=== PATIENT | female | born 1990 | race Caucasian/White ===

== ENCOUNTER → 2018-06-27 | Outpatient (CLI) | payer OTHER ==
[2018-06-27 16:55] LABS: HCT 39.8 % (34.0-46.0); HGB 13.3 gm/dL (11.4-16.0); MCH 29.7 pg (25.0-35.0); MCHC 33.4 g/dL (31.0-37.0); Mean Platelet Volume 7.5; Platelet Count 261 k/uL (150-450); RBC 4.48 m/uL (3.80-5.40); RDW 13.7 % (11.5-15.5); WBC 10.6 k/uL (3.8-10.6)
[2018-06-27 17:04] LABS: Glucose 82 mg/dL (74-99)
[2018-06-28 05:06] LABS: Toxoplasma Antibody (IgG) <3.0 IU/mL (<7.2); Toxoplasma Antibody (IgM) <3.0 AU/mL (<8.0)
[2018-06-28 05:19] LABS: HIV 1 AB Non-Reactive (Non-Reactive); HIV AB P24 Non-Reactive (Non-Reactive); HIV P24 AG Non-Reactive (Non-Reactive)
--- NOTE | 2018-06-28 09:20 | US ---
EXAMINATION TYPE: Transabdominal DATE OF EXAM: 06/27/2018 3:51 PM COMPARISON: NONE CLINICAL HISTORY: Z36 confirm dates. Confirm dates, 7, para 4, miscarriage 2. EXAM PERFORMED: Transabdominal (TA) EXAM MEASUREMENTS: GESTATIONAL AGE / DATING Physician Established: (8 weeks/3 days) EDC: 02/03/2019 Dates by LMP: Unknown Dates by First Scan: This is 1st scan Dates by Current Scan for: ( 9 weeks/0 days) EDC: 01/30/2019 MATERNAL ANATOMY Uterus: 9.5 x 6.6 x 7.8cm, anteverted Right Ovary: 2.5 x 1.6 x 1.6cm Left Ovary: 2.2 x 1.2 x 1.3cm Post CDS / Adnexa: wnl Presence of free fluid: no Presence of corpus luteal cyst: not seen Presence of subchorionic bleed: 0.9 x 1.5 x 0.7cm complex area seen to the right of gestational sac, 2.0 x 0.7 x 1.9cm complex area seen to the left of gestational sac. GESTATION / SURVEY CRL: 2.3cm (9 weeks/0 days) Yolk Sac (normal less than 6mm): 4.2mm Heart Rate: 179 bpm Rhythm: Normal IUP: Viable IUP Date of LMP: Unknown Beta HcG (if available): Not available at time of exam. Single IUP measuring 9 weeks 0 days with a heart rate of 179bpm and an estimated delivery date of . IMPRESSION: 1. Single intrauterine gestation estimated at 9 weeks 0 days gestation based on crown-rump length. Ca rdiac activity measures 179 bpm. 2. Subchorionic hemorrhage adjacent to the gestational sac.
[2018-06-29 13:28] LABS: C. trachomatis,PCR Negative (Neg,Equiv); Chlamydia trachomatis Source Urine; N. gonorrhoeae,PCR Negative (Neg,Equiv); Neisseria Source Urine
== END | disposition home or self-care (01) ==
LOC: RADUSWWP 15:28
PROVIDERS: ATTEND Obstetrics & Gynecology
DX: O20.9 Hemorrhage in early pregnancy, unspecified (principal); Z3A.09 9 weeks gestation of pregnancy
CPT/HCPCS: 36415; 76801; 82565; 82947; 85027; 86762; 86777; 86778; 86780; 86850; 86900; 86901; 87340; 87390; 87491; 87591

== ENCOUNTER 2018-11-11 13:01 | Outpatient (CLI) | payer OTHER ==
[2018-11-11 14:01] LABS: Appearance,Urine Cloudy (Clear); Bacteria,Urine Rare /hpf; Bilirubin,Urine Negative (Negative); Blood,Urine Negative (Negative); Color,Urine Yellow; Glucose,Urine (UA) Negative (Negative); Ketones,Urine Negative (Negative); Leukocyte Esterase,Urine Trace (Negative); Mucus,Urine Rare /hpf; Nitrite,Urine Negative (Negative); Protein,Urine Negative (Negative); Specific Gravity,Urine 1.013 (1.001-1.035); Squamous Epithelial Cell,Urine 16 /hpf (0-4); Urobilinogen,Urine <2.0 mg/dL (<2.0)
[2018-11-11 15:00] VITALS: BP 127/61; PULSE 81; RESP 16; TEMP 98.1
--- NOTE | 2018-11-27 17:12 | P.MSEPDOC ---
Presenting Problems - Arrival Data Date of Arrival on Unit: 11/11/18 Time of Arrival on Unit: 13:01 Mode of Transport: Ambulatory - Complaint OB-Reason for Admission/Chief Complaint: Signs/Symptoms UTI Comment: urgency, frequency, right back pain, history of pyelo Medical History - Information : 7 Para: 4 Term: 4 : 0 Abortions: Spontaneous or Elective: 2 Number of Living Children: 4 - Gestational Age Gestational Age by TAYLOR (wks/days): 28 Weeks and 4 Days - History Complications: Smoker Review of Systems - Review of Systems Constitutional: No problems Breast: No problems ENT: No problems Cardiovascular: No problems Respiratory: No problems Gastrointestinal: No problems Genitourinary: Urgency, Increased frequency Musculoskeletal: No problems Neurological: No problems Skin: No problems Vital Signs - Temperature Temperature: 98.1 F Temperature Source: Oral - Pulse Right Brachial Pulse Rate: 81 Pulse Assessment Method: Automatic Cuff - Respirations Respiratory Rate: 16 Oxygen Delivery Method: Room Air - Blood Pressure Right Arm Blood Pressure: 127/61 Blood Pressure Mean: 83 Blood Pressure Source: Automatic Cuff Medical Screen Scoring (Pre) - Cervical Exam Dilation: Exam Deferred Effacement: Exam Deferred Membranes: Intact - Uterine Contractions Frequency: N/A Duration: N/A Intensity: N/A - Maternal Vital Signs Maternal Temperature: N/A Maternal Blood Pressure: N/A Signs of Preeclampsia: N/A Maternal Respirations: N/A - Maternal Trauma Maternal Trauma: N/A - Assessment - Baby A Baseline FHR: 135 Heart Rate - NICHD Category: Category I (Normal) = 0 NST: Reactive Station: N/A - Total Score - Baby A Total Score - Baby A: 0 - Total Score - Baby B Total Score - Baby B: 0 - Total Score - Baby C Total Score - Baby C: 0 - Level of Risk - Baby A Level of Risk - Baby A: Low (0-5) - Level of Risk - Baby B Level of Risk - Baby B: Low (0-5) - Level of Risk - Baby C Level of Risk - Baby C: Low (0-5) Medical Screen Scoring (Post) - Post Treatment Level of Risk Post Treatment Level of Risk - Baby A: Low (0-5) Physician Notification (Post) - Physician Notified Physician Notified Date: 11/11/18 Physician Notified Time: 14:17 Spoke With: Mari New Order Received: Yes - Notification Comment Comment: UA contaminated, sent for culture, pt discharge with instruction to hydrate and drink cranberry Disposition - Disposition OB Disposition: Discharge to home, Written follow up instructions reviewed Discharge Date: 11/11/18 Discharge Time: 14:25 I agree with the RN Medical Screening Exam: Yes Risk & Benefit of care provided described in d/c instruction: Yes Diagnosis: URINARY TRACT INFECTION, SITE NOT SPECIFIED
== END 2018-11-11 14:25 | disposition home or self-care (01) ==
LOC: FBPOP 13:01
PROVIDERS: ATTEND Obstetrics & Gynecology
DX: O99.89 Other specified diseases and conditions complicating pregnancy, childbirth and the puerperium (principal); N39.0 Urinary tract infection, site not specified; O99.333 Smoking (tobacco) complicating pregnancy, third trimester; F17.200 Nicotine dependence, unspecified, uncomplicated; Z3A.28 28 weeks gestation of pregnancy
CPT/HCPCS: 59025; 81001; 87086; G0463; 99213

== ENCOUNTER 2019-01-21 15:13 | Inpatient (IN) | payer OTHER ==
[2019-01-21] MEDS ORDERED: OXYTOCIN 10 UNIT/ML 1 ML VIAL IM PRN (17:23)
[2019-01-21] MEDS ORDERED: METHYLERGONOVINE 0.2 MG/ML 1 ML AMP IM PRN (17:23)
[2019-01-21] MEDS ORDERED: TERBUTALINE 1 MG/ML VIAL SQ PRN (17:23)
[2019-01-21] MEDS ORDERED: LIDOCAINE 0.5% (PF) 5 MG/ML (50 ML SDV) SQ PRN (17:23)
[2019-01-21] MEDS ORDERED: CARBOPROST TROMETHAMINE 250 MCG/ML 1 ML AMP IM PRN (17:23)
[2019-01-21] MEDS ORDERED: OXYTOCIN 30 UNITS/500 ML NS 30 UNIT in SALINE 1 500ML.BAG IV SCH (17:30)
[2019-01-21] MEDS ORDERED: LACTATED RINGERS 1,000 ML IV SCH (17:30)
[2019-01-21 17:44] LABS: Basophils # (A) 0.1 k/uL (0-0.2); Basophils % (A) 1 %; Eosinophils # (A) 0.1 k/uL (0-0.7); Eosinophils % (A) 1 %; HCT 39.1 % (34.0-46.0); Lymphocytes # (A) 2.3 k/uL (1.0-4.8); Lymphocytes % (A) 19 %; MCH 29.2 pg (25.0-35.0); MCHC 33.3 g/dL (31.0-37.0); MCV 87.7 fL (80.0-100.0); Mean Platelet Volume 7.5; Monocytes # (A) 0.6 k/uL (0-1.0); Monocytes % (A) 5 %; Neutrophils # (A) 8.3 k/uL (1.3-7.7); Neutrophils % (A) 70 %; Platelet Count 217 k/uL (150-450); RBC 4.46 m/uL (3.80-5.40); RDW 13.9 % (11.5-15.5); WBC 11.8 k/uL (3.8-10.6)
[2019-01-21 17:50] VITALS: BMI 32.8
[2019-01-21] MEDS ORDERED: ROPIVACAINE 5MG/ML 20ML VIAL ONE (17:50)
[2019-01-21] MEDS ORDERED: SODIUM CHLORIDE 0.9% 100 ML BAG ONE (17:50)
[2019-01-21] MEDS ORDERED: fentaNYL (PF) 50 MCG/ML 5 ML AMP ONE (17:50)
[2019-01-21] MEDS ORDERED: WITCH HAZEL 1 EACH MED..PAD TOPICAL PRN (20:32)
[2019-01-21] MEDS ORDERED: SIMETHICONE 80 MG CHEWABLE PO PRN (20:32)
[2019-01-21] MEDS ORDERED: BENZOCAINE/MENTHOL SPRAY 1 GM/SPRAY AEROSOL TOPICAL PRN (20:32)
[2019-01-21] MEDS ORDERED: HYDROCORTISONE 2.5% RECTAL CREAM 30 GM TUBE RECTAL PRN (20:32)
[2019-01-21] MEDS ORDERED: LANOLIN CREAM 5 GM TUBE TOPICAL PRN (20:32)
[2019-01-21] MEDS ORDERED: diphenhydrAMINE 50 MG/ML 1 ML VIAL IVP PRN ×2 (20:32)
[2019-01-21] MEDS ORDERED: ZOLPIDEM 5 MG TAB PO PRN (20:32)
[2019-01-21] MEDS ORDERED: MEASLES-MUMPS-RUBELLA VACC/PF 12,500 UNIT/0.5 ML VIAL SQ ONE (20:32)
[2019-01-21] MEDS ORDERED: diphenhydrAMINE 50 MG CAP PO PRN (20:32)
[2019-01-21] MEDS ORDERED: ACETAMINOPHEN TAB 325 MG TAB PO PRN (20:32)
[2019-01-21] MEDS ORDERED: diphenhydrAMINE 25 MG CAP PO PRN (20:32)
--- NOTE | 2019-01-21 20:36 | P.HPOB ---
History of Present Illness H&P Date: 01/21/19 Chief Complaint: Intrauterine at term: Active labor: Polyhydramnios Patient is a 28-year-old G3 7 P4 at 38 weeks gestation arrives my office dilated to 5 cm. She was sent to labor and delivery where it was noted that she was making change dilated to 6/2 cm she was therefore admitted for labor. Her Precis course has been, complicated by polyhydramnios. Polyhydramnios was noted initially at 32 weeks and then by 33 or 34 weeks it was noted be significant elevated and has been followed closely over sounds. She has been doing nonstress tests twice weekly as well as by physical profiles. Pertinent labs O+ blood type Rh antibody was negative, rubella nonimmune, hepatitis B surface antigen RPR and GBS were all negative. She did pass her one-hour Glucola screen and torch titers had been ordered. On physical exam vital signs are stable and afebrile. Heart regular, lungs clear, extremities without pain. Abdomen soft gravid uterus is noted. She is dilated in 6 cm artificial rupture membranes was performed and clear fluid is noted. Category 1 tracing is noted. Assessment intrauterine at term. Polyhydramnios Plan expect spontaneous vaginal delivery. Past Medical History Past Medical History: No Reported History History of Any Multi-Drug Resistant Organisms: None Reported Past Surgical History: No Surgical Hx Reported Past Anesthesia/Blood Transfusion Reactions: No Reported Reaction Past Psychological History: No Psychological Hx Reported Smoking Status: Current every day smoker Past Alcohol Use History: None Reported Past Drug Use History: None Reported - Past Family History Father Family Medical History: No Reported History Medications and Allergies Home Medications Medication Instructions Recorded Confirmed Type No Known Home Medications 11/11/18 01/21/19 History Allergies Allergy/AdvReac Type Severity Reaction Status Date / Time No Known Allergies Allergy Verified 01/21/19 15:26 Exam Osteopathic Statement: *. No significant issues noted on an osteopathic structural exam other than those noted in the History and Physical/Consult. Vital Signs Temp Pulse Resp BP Pulse Ox 01/21/19 17:22 98.5 F 72 16 118/63 98 01/21/19 17:02 98.5 F 72 16 118/63 98 Intake and Output 01/21/19 01/21/19 01/21/19 06:59 14:59 22:59 Other: Weight 76.204 kg Results Result Diagrams: 01/21/19 17:30 Abnormal Lab Results - Last 24 Hours (Table) 01/21/19 Range/Units 17:30 WBC 11.8 H (3.8-10.6) k/uL Neutrophils # 8.3 H (1.3-7.7) k/uL
--- NOTE | 2019-01-21 20:39 | P.PROBDLV ---
Vaginal Delivery Note - . Vaginal Delivery Note: Patient progressed complete and pushing with vacuum assisted delivery of a viable male over an intact perineum. During the pushing the initially lost heart tones on the external heart monitor. A pulse ox was placed on mother's finger to verify her heart rate and an ISL was then placed. The ISL was having a difficult time picking up the baby but the numbers that were recording on the machine were in the 40s to 50s and an abundance of caution due to what could the appendix emergency a vacuum extraction was performed. A brief discussion of risks was held with the patient but as the heart tones were potential in the 40s and rapid delivery was required we did move forward with the placement of the vacuum was placed on babies head posterior to the fontanelle and was pumped up to the minimum milligrams of pressure and using 2 pulls during contraction revealed a guide the baby's head to the perineum the vacuum was then removed and the baby's head was delivered without difficulty anterior posterior shoulders were easily delivered baby was delivered from right occiput anterior position. Once baby was fully delivered mouth nares were bulb suctioned and baby was placed on mother's abdomen where the umbilical cord was clamped cut usual fashion following 30 seconds of cord pulsation. The baby did have spontaneous cry and excellent tone with scores of 8 and 9 at one and 5 minutes respectively and the weight was 6 lbs. 14 oz. Both mother and baby are stable following delivery. Placenta was delivered intact without difficulty. Pitocin was also added to the IV.
[2019-01-21] MEDS ORDERED: OXYTOCIN 20 UNITS/1000 ML NS 1,000 ML IV SCH (20:45)
[2019-01-22] MEDS ORDERED: SENNOSIDES-DOCUSATE SODIUM 1 EACH TAB PO SCH (08:00)
[2019-01-22] MEDS: IBUPROFEN 600 MG TAB PO PRN ×2 (08:33→15:10)
--- NOTE | 2019-01-22 08:44 | P.DS ---
Providers Date of admission: 01/21/19 17:13 Expected date of discharge: 01/22/19 Attending physician: Pascual Guerra Primary care physician: Stated None Hospital Course: Doing very well day 1. She is involuting, voiding and tolerating her diet. She voices no complaints and is requesting discharge home tonight. Vital signs are stable and afebrile. Heart regular, lungs clear, extremities without pain. Abdomen is soft and nontender. Uterus is firm below the umbilicus and lochia is reported be light. Assessment day 1. Plan discharged home follow up with me in 6 weeks. Prescription for Motrin was provided and all questions were asked for her prior to discharge. Discharge instructions thoroughly reviewed. Patient Condition at Discharge: Good Plan - Discharge Summary New Discharge Prescriptions: No Action No Known Home Medications Discharge Medication List No Known Home Medications 11/11/18 [History]
[2019-01-22 09:24] VITALS: RESP 18
[2019-01-22 15:30] VITALS: BP 110/63; PULSE 68; TEMP 97.5
== END 2019-01-22 20:50 | disposition home or self-care (01) | DRG 807 ==
LOC: FBPOP 15:13 → 4FBP 17:13
PROVIDERS: ADMIT Obstetrics & Gynecology; ATTEND Obstetrics & Gynecology
PROC: 10D07Z6 Extraction of Products of Conception, Vacuum, Via Natural or Artificial Opening (ICD-10-PCS; principal; 2019-01-21)
DX: O40.3XX0 Polyhydramnios, third trimester, not applicable or unspecified (principal); Z37.0 Single live birth; O99.334 Smoking (tobacco) complicating childbirth; F17.200 Nicotine dependence, unspecified, uncomplicated; Z3A.38 38 weeks gestation of pregnancy
CPT/HCPCS: 59025; 85025; 86850; 86900; 86901; 88307; 99213

== ENCOUNTER 2019-05-06 10:46 | Emergency (ER) | payer OTHER ==
[2019-05-06 11:04] VITALS: RESP 18; TEMP 97.6
--- NOTE | 2019-05-06 11:55 | ED ---
General Adult HPI - General Chief complaint: Headache Stated complaint: Fell hit head week ago having dizzy spells Time Seen by Provider: 05/06/19 11:05 Source: patient, RN notes reviewed Mode of arrival: ambulatory Limitations: no limitations - History of Present Illness Initial comments: 28-year-old female presents to the emergency department for chief complaint of headache. Patient states that about a week ago she fell and she hit her head against the wall. States that since that time she has had intermittent headaches on and off. She is denies been dizzy with this. Patient states that she thinks she has congestion but wants to be checked out. She states her neck is somewhat painful since this event. She has not had any fevers or chills. No other symptoms.Patient has no other complaints at this time including shortness of breath, chest pain, abdominal pain, nausea or vomiting, or visual changes. - Related Data Previous Rx's Medication Instructions Recorded Ibuprofen [Motrin] 600 mg PO Q6HR PRN #30 tab 01/22/19 Allergies Allergy/AdvReac Type Severity Reaction Status Date / Time No Known Allergies Allergy Verified 01/21/19 15:26 Review of Systems ROS Statement: Those systems with pertinent positive or pertinent negative responses have been documented in the HPI. ROS Other: All systems not noted in ROS Statement are negative. Past Medical History Past Medical History: No Reported History History of Any Multi-Drug Resistant Organisms: None Reported Past Surgical History: No Surgical Hx Reported Past Anesthesia/Blood Transfusion Reactions: No Reported Reaction Past Psychological History: Anxiety Smoking Status: Current every day smoker Past Alcohol Use History: None Reported Past Drug Use History: None Reported - Past Family History Father Family Medical History: No Reported History General Exam Limitations: no limitations General appearance: alert, in no apparent distress Head exam: Present: atraumatic, normocephalic, normal inspection Eye exam: Present: normal appearance, PERRL, EOMI. Absent: scleral icterus, conjunctival injection, periorbital swelling ENT exam: Present: normal exam, mucous membranes moist Neck exam: Present: normal inspection, full ROM (full Range of motion, full flexion of the neck, no evidence of meningismus.). Absent: tenderness, meningismus, lymphadenopathy Respiratory exam: Present: normal lung sounds bilaterally. Absent: respiratory distress, wheezes, rales, rhonchi, stridor Cardiovascular Exam: Present: regular rate, normal rhythm, normal heart sounds. Absent: systolic murmur, diastolic murmur, rubs, gallop, clicks GI/Abdominal exam: Present: soft, normal bowel sounds. Absent: distended, tenderness, guarding, rebound, rigid Neurological exam: Present: alert, oriented X3, CN II-XII intact, normal gait, other (GCS 15) Psychiatric exam: Present: normal affect, normal mood Course Vital Signs 05/06/19 11:00 Temperature 97.6 F Pulse Rate 70 Respiratory 18 Rate Blood Pressure 134/75 O2 Sat by Pulse 97 Oximetry Medical Decision Making - Medical Decision Making CT brain and C-spine shows no acute fracture or dislocation evident. No acute intracranial hemorrhage or midline shift is seen. Patient likely has symptoms of concussion. Recommended Motrin and Tylenol and follow up with primary care in 1-2 days. Recommend no contact sports or exertional activity. Recommend she return if she is any worsening symptoms. - Lab Data Lab Results 05/06/19 Range/Units 11:23 Urine HCG, Qual Not Detected (Not Detectd) Disposition Clinical Impression: Headache Disposition: HOME SELF-CARE Condition: Good Instructions (If sedation given, give patient instructions): Acute Headache (ED), Concussion (ED) Additional Instructions: Please take Motrin, Tylenol for pain. Please follow-up with primary care in 1-2 days. Return to the emergency department if you have any worsening symptoms. Is patient prescribed a controlled substance at d/c from ED?: No Referrals: Rafael Cherry MD [REFERRING] - 1-2 days Time of Disposition: 12:09
--- NOTE | 2019-05-06 12:04 | CT ---
EXAMINATION TYPE: CT brain bell marie DATE OF EXAM: 05/06/2019 COMPARISON: NONE HISTORY: Left posterior head injury 1 week ago. Dizziness and neck pain since. CT DLP: 1257.1 mGycm. Automated Exposure Control for Dose Reduction was Utilized. TECHNIQUE: CT scan of the head and cervical spine are performed without contrast. FINDINGS: There is no acute intracranial hemorrhage, mass effect, or midline shift identified. The ventricles and sulci are within normal limits in size. Barahona-white matter differentiation is maintain ed. The globes are intact and the visualized sinuses are clear. Nasal septum deviated to right of mid line. The calvarium is intact. No suspicious opacification mastoid air cells bilaterally. Cervical spine is visualized in its entirety from C1 through upper thoracic levels and demonstrates r eversal of normal cervical curvature without evidence of acute fracture or dislocation. Prevertebral soft tissue appears within normal limits. The C1-C2 articulation is within normal limits on the cor onal images. Vertebral body heights and disc space heights are maintained. Spinal canal is preserved. Lung apices are clear. IMPRESSION: 1. There is no acute fracture or dislocation evident in the cervical spine. 2. No acute intracranial hemorrhage or midline shift is seen.
[2019-05-06] MEDS ORDERED: KETOROLAC 30 MG/ML 1 ML VIAL IM STA (12:16)
[2019-05-06 12:25] VITALS: BP 119/69; PULSE 66
== END 2019-05-06 12:28 | disposition home or self-care (01) ==
LOC: EC 10:46
DX: R51 Headache (principal); R47.89 Other speech disturbances; F17.200 Nicotine dependence, unspecified, uncomplicated
CPT/HCPCS: 81025; 72125; 70450; 99284; 96372; J1885

== ENCOUNTER 2020-06-23 10:10 | Outpatient (CLI) | payer OTHER | END 2020-06-23 11:03 | disposition home or self-care (01) | LOC: FBPOP 10:10 | PROVIDERS: ATTEND Obstetrics & Gynecology | DX: O30.009 Twin pregnancy, unspecified number of placenta and unspecified number of amniotic sacs, unspecified trimester (principal); Z3A.00 Weeks of gestation of pregnancy not specified | CPT/HCPCS: 59025; G0463; 99213 ==

== ENCOUNTER 2020-06-30 11:36 | Outpatient (CLI) | payer OTHER ==
[2020-06-30] MEDS ORDERED: BETAMET ACET-BETAMETH SOD PHOS 6 MG/ML MDV IM SCH (12:00)
[2020-06-30 14:57] VITALS: BP 111/72; PULSE 93; RESP 16; TEMP 98.4
--- NOTE | 2020-06-30 15:50 | US ---
EXAMINATION TYPE: US OB BPP wo non-stress DATE OF EXAM: 06/30/2020 COMPARISON: NONE CLINICAL HISTORY: Twin gestation 32 6/7 weeks. EXAM PERFORMED: Transabdominal (TA) BPP PARAMETERS: Baby A HEART RATE: 134 bpm RHYTHM: Normal JOSE: 10.7cm DIAPHRAGM IMAGED: yes There is a membrane noted on 2 images BPP SCORIN. Breathin (1 episode of breathing of 30 second duration in 30 minutes of scanning time) 2. Movement: 2 (at least 3 discrete body movements in 30 minutes) 3. Tone: 2 (1 episode of active flexion/extension of limb) 4. JOSE: 2 (JOSE index > 5cm) TOTAL SCORE: 8 / 8 BPP PARAMETERS: BABY B HEART RATE: 147 bpm RHYTHM: Normal JOSE: 11.0cm DIAPHRAGM IMAGED: yes BPP SCORIN. Breathin (1 episode of breathing of 30 second duration in 30 minutes of scanning time) 2. Movement: 2 (at least 3 discrete body movements in 30 minutes) 3. Tone: 2 (1 episode of active flexion/extension of limb) 4. JOSE: 2 (JOSE index > 5cm) TOTAL SCORE: 8 / 8
--- NOTE | 2020-07-22 16:30 | P.MSEPDOC ---
Presenting Problems - Arrival Data Date of Arrival on Unit: 06/30/20 Time of Arrival on Unit: 11:36 Mode of Transport: Portable - Complaint OB-Reason for Admission/Chief Complaint: NST Comment: arrives with script for twin nsts and bpps Medical History - Information : 6 Para: 5 Number of Living Children: 5 - Gestational Age Gestational Age by TAYLOR (wks/days): 32 Weeks and 6 Days - History Complications: Multiple Review of Systems - Review of Systems Constitutional: No problems Breast: No problems ENT: No problems Cardiovascular: No problems Respiratory: No problems Gastrointestinal: No problems Genitourinary: No problems Musculoskeletal: No problems Neurological: No problems Skin: No problems Vital Signs - Temperature Temperature: 98.4 F Temperature Source: Temporal Artery Scan - Pulse Right Pulse Rate: 93 Pulse Assessment Method: Automatic Cuff - Respirations Respiratory Rate: 16 Oxygen Delivery Method: Room Air O2 Sat by Pulse Oximetry: 98 - Blood Pressure Right Arm Sitting Blood Pressure: 111/72 Blood Pressure Mean: 85 Blood Pressure Source: Automatic Cuff Medical Screen Scoring (Pre) - Cervical Exam Dilation: Exam Deferred Effacement: Exam Deferred Membranes: Intact - Uterine Contractions Frequency: N/A Duration: N/A Intensity: N/A - Maternal Vital Signs Maternal Temperature: N/A Maternal Blood Pressure: N/A Signs of Preeclampsia: N/A Maternal Respirations: N/A - Maternal Trauma Maternal Trauma: N/A - Assessment - Baby A Baseline FHR: 125 Heart Rate - NICHD Category: Category I (Normal) = 0 NST: Reactive Position: N/A Station: N/A - Assessment - Baby B Baseline FHR: 130 Heart Rate - NICHD Category: Category I (Normal) = 0 NST: Reactive Position: N/A Station: N/A - Total Score - Baby A Total Score - Baby A: 0 - Total Score - Baby B Total Score - Baby B: 0 - Total Score - Baby C Total Score - Baby C: 0 - Level of Risk - Baby A Level of Risk - Baby A: Low (0-5) - Level of Risk - Baby B Level of Risk - Baby B: Low (0-5) - Level of Risk - Baby C Level of Risk - Baby C: Low (0-5) Physician Notification (Pre) - Physician Notified Physician Notified Date: 06/30/20 Physician Notified Time: 12:55 New Order Received: Yes (d/c) - Notification Comment Comment: return tomorrow for second dose of Celestone Disposition - Disposition OB Disposition: Triage Discharge Date: 06/30/20 Discharge Time: 13:00 I agree with the RN Medical Screening Exam: Yes Case reviewed; plan agreed upon as documented in EMR&OBIX.: Yes Diagnosis: TWIN , DICHORIONIC/DIAMNIOTIC, THIRD TRIMESTER
== END 2020-06-30 13:00 | disposition home or self-care (01) ==
LOC: FBPOP 11:36
PROVIDERS: ATTEND Obstetrics & Gynecology
DX: O30.043 Twin pregnancy, dichorionic/diamniotic, third trimester (principal); Z3A.32 32 weeks gestation of pregnancy
CPT/HCPCS: 59025; 96372; 76819; J0702

== ENCOUNTER 2020-07-01 10:02 | Outpatient (CLI) | payer OTHER ==
[2020-07-01] MEDS ORDERED: BETAMET ACET-BETAMETH SOD PHOS 6 MG/ML MDV IM SCH (10:15)
--- NOTE | 2020-07-22 16:34 | P.MSEPDOC ---
Presenting Problems - Arrival Data Date of Arrival on Unit: 07/01/20 Time of Arrival on Unit: 10:00 Mode of Transport: Ambulatory - Complaint OB-Reason for Admission/Chief Complaint: Celestone Injection Comment: Second celestone; no other care; pt to attend appt in [place] following injection. rec'd first celestone yesterday along with NST and BPP. Medical History - Information : 6 Para: 5 - Gestational Age Gestational Age by TAYLOR (wks/days): 33 Weeks and 0 Days - History Complications: Multiple Review of Systems - Review of Systems Constitutional: No problems Breast: No problems ENT: No problems Cardiovascular: No problems Respiratory: No problems Gastrointestinal: No problems Genitourinary: No problems Musculoskeletal: No problems Neurological: No problems Skin: No problems Physician Notification (Pre) - Physician Notified Physician Notified Date: 07/01/20 Physician Notified Time: 10:15 New Order Received: Yes - Notification Comment Comment: Spk c\Dr. Trujillo, advsd pt of Dr. Casanova, presents for second celestone inj. States to admin celestone and discharge to appt, no other care needed. Disposition - Disposition OB Disposition: Discharge to home, Written follow up instructions reviewed Discharge Date: 07/01/20 Discharge Time: 10:20 I agree with the RN Medical Screening Exam: Yes Case reviewed; plan agreed upon as documented in EMR&OBIX.: Yes Diagnosis: TWIN , DICHORIONIC/DIAMNIOTIC, THIRD TRIMESTER
== END 2020-07-01 10:20 | disposition home or self-care (01) ==
LOC: FBPOP 10:02
PROVIDERS: ATTEND Obstetrics & Gynecology
DX: O30.043 Twin pregnancy, dichorionic/diamniotic, third trimester (principal); O99.333 Smoking (tobacco) complicating pregnancy, third trimester; F17.200 Nicotine dependence, unspecified, uncomplicated; Z3A.33 33 weeks gestation of pregnancy
CPT/HCPCS: 96372; J0702

== ENCOUNTER 2020-07-07 14:20 | Outpatient (CLI) | payer OTHER ==
--- NOTE | 2020-07-07 15:45 | US ---
EXAMINATION TYPE: US OB BPP wo non-stress DATE OF EXAM: 07/07/2020 COMPARISON: US 06/30/20 CLINICAL HISTORY: Twins. EXAM PERFORMED: Transabdominal (TA) BPP PARAMETERS: Baby A PRESENTATION: Vertex LIE: Longitudinal?? HEART RATE: 163 bpm RHYTHM: Normal JOSE: wnl DIAPHRAGM IMAGED: yes BPP SCORIN. Breathin (1 episode of breathing of 30 second duration in 30 minutes of scanning time) 2. Movement: 2 (at least 3 discrete body movements in 30 minutes) 3. Tone: 2 (1 episode of active flexion/extension of limb) 4. JOSE: 2 (JOSE index > 5cm) TOTAL SCORE: 8 / 8 Baby B PRESENTATION: Vertex LIE: Oblique?? HEART RATE: 130 bpm RHYTHM: Normal JOSE: wnl DIAPHRAGM IMAGED: yes BPP SCORIN. Breathin (1 episode of breathing of 30 second duration in 30 minutes of scanning time) 2. Movement: 2 (at least 3 discrete body movements in 30 minutes) 3. Tone: 2 (1 episode of active flexion/extension of limb) 4. JOSE: 2 (JOSE index > 5cm) TOTAL SCORE: 8 / 8 Impressions: 1. Normal biophysical profile scoring 8 out of 8. 2. Cardiac activity measures 130 beats was evident during the exam. 3. lie is oblique
== END 2020-07-07 15:51 | disposition home or self-care (01) ==
LOC: FBPOP 14:20
PROVIDERS: ATTEND Obstetrics & Gynecology
DX: Z36.9 Encounter for antenatal screening, unspecified (principal); Z3A.00 Weeks of gestation of pregnancy not specified
CPT/HCPCS: 59025; 76819; G0463; 99213

== ENCOUNTER 2020-07-19 11:50 | Outpatient (CLI) | payer OTHER ==
[2020-07-19 12:31] VITALS: BP 134/71; PULSE 95; RESP 16; TEMP 97
--- NOTE | 2020-07-31 08:49 | P.MSEPDOC ---
Presenting Problems - Arrival Data Date of Arrival on Unit: 07/19/20 Time of Arrival on Unit: 11:50 Mode of Transport: Ambulatory - Complaint OB-Reason for Admission/Chief Complaint: NST Comment: Biweekly NST for twin gestation Medical History - Information : 6 Para: 5 - Gestational Age Gestational Age by TAYLOR (wks/days): 35 Weeks and 4 Days - History Complications: Multiple Review of Systems - Review of Systems Constitutional: No problems Breast: No problems ENT: No problems Cardiovascular: No problems Respiratory: No problems Gastrointestinal: No problems Genitourinary: No problems Musculoskeletal: No problems Neurological: No problems Skin: No problems Vital Signs - Temperature Temperature: 97 F Temperature Source: Temporal Artery Scan - Pulse Right Sitting Pulse Rate: 95 Pulse Assessment Method: Pulse Oximetry - Respirations Respiratory Rate: 16 Oxygen Delivery Method: Room Air O2 Sat by Pulse Oximetry: 100 - Blood Pressure Right Arm Sitting Blood Pressure: 134/71 Blood Pressure Mean: 92 Blood Pressure Source: Automatic Cuff Medical Screen Scoring (Pre) - Cervical Exam Dilation: Exam Deferred Effacement: Exam Deferred - Uterine Contractions Frequency: N/A Duration: N/A Intensity: N/A - Maternal Vital Signs Maternal Temperature: N/A Maternal Blood Pressure: N/A Signs of Preeclampsia: N/A Maternal Respirations: N/A - Assessment - Baby A Baseline FHR: 130 Heart Rate - NICHD Category: Category II (Indeterminate) = 3 NST: Reactive Position: N/A - Assessment - Baby B Baseline FHR: 135 Heart Rate - NICHD Category: Category I (Normal) = 0 NST: Reactive Position: N/A - Total Score - Baby A Total Score - Baby A: 3 - Total Score - Baby B Total Score - Baby B: 0 - Total Score - Baby C Total Score - Baby C: 0 - Level of Risk - Baby A Level of Risk - Baby A: Low (0-5) - Level of Risk - Baby B Level of Risk - Baby B: Low (0-5) - Level of Risk - Baby C Level of Risk - Baby C: Low (0-5) Physician Notification (Pre) - Physician Notified Physician Notified Date: 07/19/20 Physician Notified Time: 12:15 - Notification Comment Comment: Spk c\Dr. Grissom, present on FBP, advsd pt of Dr. Casanova, presents for. biweekly NST r/t twin letty, 35 08/11, no complications per pt. Has appt Sun. c\Mari and c\Guru. Order rec'd to d/c home after reactive NSTs, to follow up. as scheduled. Disposition - Disposition OB Disposition: Discharge to home, Written follow up instructions reviewed Discharge Date: 07/19/20 Discharge Time: 12:30 I agree with the RN Medical Screening Exam: Yes Case reviewed; plan agreed upon as documented in EMR&OBIX.: Yes Diagnosis: TWIN , DICHORIONIC/DIAMNIOTIC, THIRD TRIMESTER
== END 2020-07-19 12:30 | disposition home or self-care (01) ==
LOC: FBPOP 11:50
PROVIDERS: ATTEND Obstetrics & Gynecology
DX: O30.043 Twin pregnancy, dichorionic/diamniotic, third trimester (principal); Z3A.35 35 weeks gestation of pregnancy
CPT/HCPCS: 59025

== ENCOUNTER 2020-07-21 15:02 | Inpatient (IN) | payer OTHER ==
[2020-07-21] MEDS ORDERED: LIDOCAINE 0.5% (PF) 5 MG/ML (50 ML SDV) SQ PRN (16:10)
[2020-07-21] MEDS ORDERED: TERBUTALINE 1 MG/ML VIAL SQ PRN (16:10)
[2020-07-21] MEDS ORDERED: METHYLERGONOVINE 0.2 MG/ML 1 ML AMP IM PRN (16:10)
[2020-07-21] MEDS ORDERED: CARBOPROST TROMETHAMINE 250 MCG/ML 1 ML AMP IM PRN (16:10)
[2020-07-21] MEDS ORDERED: AMPICILLIN 2,000 MG in SODIUM CHLORIDE 0.9% 100 ML IVPB STA (16:10)
[2020-07-21] MEDS ORDERED: OXYTOCIN 10 UNIT/ML 1 ML VIAL IM PRN (16:10)
--- NOTE | 2020-07-21 16:29 | P.HPOB ---
History of Present Illness H&P Date: 07/21/20 Chief Complaint: Intrauterine 35 weeks 6 days gestation: Twins: Active labor Patient is a 29-year-old G2 and P5 at 35 weeks 6 days gestation who arrives in active labor dilated to 6 cm 80% effaced -1 station karley every 2-4 minutes. Her course has been, complicated by twin gestation for which she has been constantly followed and did coordinate with maternal- medicine. She's had multiple ultrasounds and there has been good concordance of growth. She was scheduled to see maternal medicine tomorrow for another ultrasound. Due to positional questions and ultrasound was done here today and vertex vertex is shown. She is planning to do a vaginal delivery for her twins. She and I have on multiple occasions discussed risks of vaginal delivery with twins including but not limited to baby getting some stock and needing a section. She is aware that baby Eileen have no problems in delivering the baby once it has more room makes fluid around acid dictating a section. She and her partner both aware of this and we did discuss this in great detail this afternoon again. Pertinent labs O+ blood type Rh and it was negative, rubella is nonimmune, hepatitis surface antigen and RPR are both negative. heart tones are noted. We'll plan epidural for analgesia. All the questions are answered for her at this time. Past Medical History Past Medical History: No Reported History History of Any Multi-Drug Resistant Organisms: None Reported Past Surgical History: No Surgical Hx Reported Past Anesthesia/Blood Transfusion Reactions: No Reported Reaction Smoking Status: Current every day smoker - Past Family History Father Family Medical History: No Reported History Medications and Allergies Allergies Allergy/AdvReac Type Severity Reaction Status Date / Time No Known Allergies Allergy Verified 07/19/20 12:08 Exam Osteopathic Statement: *. No significant issues noted on an osteopathic structural exam other than those noted in the History and Physical/Consult. Intake and Output 07/21/20 07/21/20 07/21/20 06:59 14:59 22:59 Other: Weight 71.214 kg - OBG Physical Exam Breast: both: normal (no masses) Abdomen: bowel sounds normal, no diffuse tenderness, no bruit present, no guarding noted, no hepatomegaly, no splenomegaly, no mass Vulva: both: normal Vagina: normal moisture, no discharge Cervix: no lesion, no discharge Uterus: normal size, normal contour Adnexa: both: normal Anus/Rectum: normal perianal skin, no rectal mass, no hemorrhoids, heme negative
--- NOTE | 2020-07-21 16:38 | US ---
EXAMINATION TYPE: US OB limited DATE OF EXAM: 07/21/2020 COMPARISON: Ultrasound 2 weeks ago CLINICAL HISTORY: check position due to labor. position for twins EXAM PERFORMED: Transabdominal (TA) GESTATIONAL AGE / DATING Physician Established: (35 weeks/6 days) EDC: 08/19/20 No growth performed on today?s study per ordering physician SURVEY Baby A PRESENTATION: Vertex LIE: maternal right HEART RATE: 146 bpm RHYTHM: Normal Baby B PRESENTATION: Vertex LIE: maternal left HEART RATE: 158 bpm RHYTHM: Normal Twin dichorionic diamniotic live gestation redemonstrated. Positioning is currently cephalad for both fetuses. IMPRESSION: As above.
[2020-07-21] MEDS: LACTATED RINGERS 1,000 ML IV SCH ×5 (17:05→23:18)
[2020-07-21] MEDS ORDERED: fentaNYL (PF) 50 MCG/ML 5 ML AMP ONE (17:15)
[2020-07-21] MEDS ORDERED: ROPIVACAINE 5MG/ML 20ML VIAL ONE (17:15)
[2020-07-21] MEDS ORDERED: SODIUM CHLORIDE 0.9% 100 ML BAG ONE (17:15)
[2020-07-21] MEDS ORDERED: ROPIVACAINE 100 MG, fentaNYL (PF) 200 MCG in SODIUM CHLORIDE 0.9% 76 ML EPIDURAL ONE (17:36)
[2020-07-21] MEDS ORDERED: OXYTOCIN 10 UNIT/ML 1 ML VIAL ONE (18:46)
[2020-07-21] MEDS ORDERED: PROPOFOL 10 MG/ML 20 ML VIAL IV ONE (18:46)
[2020-07-21] MEDS ORDERED: HYDROmorphone (PF) 1 MG/ML ONE (18:46)
[2020-07-21] MEDS ORDERED: SUCCINYLCHOLINE CHLORIDE 100 MG/5 ML SYR IV ONE (18:46)
[2020-07-21] MEDS ORDERED: KETOROLAC 15 MG/ML 1 ML VIAL ONE (18:46)
[2020-07-21] MEDS ORDERED: fentaNYL (PF) 50 MCG/ML 2 ML AMP ONE (18:46)
[2020-07-21] MEDS ORDERED: ONDANSETRON 4 MG/2 ML VIAL ONE (18:46)
[2020-07-21] MEDS ORDERED: PHENYLEPHRINE-0.9% NACL SYG 1,000 MCG/10 ML SYRINGE ONE (18:46)
[2020-07-21] MEDS ORDERED: HYDROmorphone PCA 10 MG/50 ML BAG IV PRN (20:07)
[2020-07-21] MEDS ORDERED: LANOLIN CREAM 5 GM TUBE TOPICAL PRN (20:07)
[2020-07-21] MEDS ORDERED: diphenhydrAMINE 25 MG CAP PO PRN (20:07)
[2020-07-21] MEDS ORDERED: diphenhydrAMINE 50 MG/ML 1 ML VIAL IVP PRN (20:07)
[2020-07-21] MEDS ORDERED: SIMETHICONE 80 MG CHEWABLE PO PRN (20:07)
[2020-07-21] MEDS ORDERED: NALOXONE 0.4 MG/ML 1 ML VIAL IV PRN (20:07)
[2020-07-21] MEDS ORDERED: ZOLPIDEM 5 MG TAB PO PRN (20:07)
[2020-07-21] MEDS ORDERED: METOCLOPRAMIDE 5 MG/ML 2 ML VIAL IVP PRN (20:07)
[2020-07-21] MEDS ORDERED: IBUPROFEN 600 MG TAB PO PRN (20:07)
--- NOTE | 2020-07-21 20:11 | XR ---
EXAMINATION TYPE: XR abdomen 1V DATE OF EXAM: 07/21/2020 COMPARISON: NONE HISTORY: OR count check. TECHNIQUE: Single view FINDINGS: There is no evidence of radiopaque foreign body. Bowel gas pattern is normal. There is poss ible small calculi in the right kidney. IMPRESSION: No foreign body seen.
[2020-07-21] MEDS ORDERED: OXYTOCIN 30 UNITS/500 ML NS 30 UNIT in SALINE 1 500ML.BAG IV SCH (20:15)
[2020-07-21] MEDS ORDERED: AMPICILLIN 1,000 MG in SODIUM CHLORIDE 0.9% 50 ML IVPB SCH (20:15)
--- NOTE | 2020-07-21 20:30 | P.PROBDLV ---
Vaginal Delivery Note - . Vaginal Delivery Note: Normal spontaneous vaginal delivery twin A at 1856 hrs. Please see dictated H&P for intimate details of this patient's admission. In brief summary this is a 29-year-old 10 para 5 estimated gestational age 35-6/7 weeks admitted earlier this afternoon by Dr. Guerra for labor with twins. Ultrasound was performed which showed vertex vertex twins and previous discussion with the patient per Dr. Guerra, plan was to proceed with vaginal delivery. Patient had an epidural placed and IV antibiotics. Patient this time is 7 cm dilated has artificial rupture membranes for clear fluid. heart tones are reactive 2. Patient quickly gets to complete and we therefore take her to the operating room for a double setup delivery. Patient is prepped and draped. With one push she has a controlled delivery of the infant's head over the intact perineum. Mouth and nares are bulb suctioned. There is no evidence of a nuchal cord. With gentle traction within delivery the anterior and posterior shoulder and rest this 's body. This infant's umbilical cords doubly clamped and cut the infant is medially handed off to the pony trimmer who is present. The vigorous viable female Apgars are 9 and 9 delivery time is 1856 hrs. At this time an ultrasound is done which shows the twin B to be slightly oblique with the head on the right side. Artificial rupture membranes was done at this time and there is a copious amount of fluid. At that time I do an exam and it is noted that the has descended transverse with feet presenting. Patient therefore is prepped for an emergent for twin B. Please see dictated operative note for delivery of twin B. There are no perineal lacerations.
--- NOTE | 2020-07-21 20:49 | P.OP ---
Date of Procedure: 07/21/20 Preoperative Diagnosis: #2: 35-6/7 week intrauterine . #2: Malpresentation/transverse down twin B. #3: Multi parity desires permanent sterilization Postoperative Diagnosis: Same Procedure(s) Performed: #1: Emergent primary low transverse section with T extension. #2: Bilateral partial salpingectomy Anesthesia: GETA, epidural Surgeon: Jeffrey Rodriguez Estimated Blood Loss (ml): 1,100 Pathology: other (Placenta and bilateral fallopian tube segments) Condition: stable Disposition: floor Indications for Procedure: Please see dictated H&P per Dr. Guerra on this patient's admission. In brief summary this is a 29-year-old 10 para 5 female estimated gestational age 35-6/7 weeks gestation admitted earlier this afternoon per Dr. Guerra in active labor. Patient had an epidural placed and IV antibiotics given. She had artificial rupture membranes at 7 cm for clear fluid. Patient quickly progressed and was taken to the operating room for double setup delivery. Patient with approximately 1 push delivered twin A over an intact perineum. Please see dictated separate vaginal delivery note. At this time the hand-held ultrasound was done and twin B is found to be in the patient's right side oblique. Artificial rupture membranes is then done and at this time there is a large amount of amniotic fluid Vaginal exam is done at this time and is now felt the baby to be transverse feet down. At this point it is evident that an emergent needs to be done. I did discuss this previously with the patient has did Dr. Guerra. I also had a discussion with her earlier this evening in regards to her wishes for permanent sterilization if she needed a section and she requested this be done at the time of surgery. She did understand this was permanent. Patient did understand the risks of surgery including the need for general anesthetic and all of her questions were answered. She understood the risk of infection, bleeding, possible injury to bowel, bladder, vessels, and/or other organs. Operative Findings: This was a viable male infant Apgars 7 and 9 delivery time is 1906 hrs. Infant was delivered double footling breech. grossly appeared normal. Description of Procedure: This patient was already in the operating room. She is immediately converted from a vaginal lithotomy position to supine position. Due to the emergent nature she has an immediate abdominal prep and drape. Patient's subsequent goes under rapid sequence general and tracheal anesthesia. With an adequate level of anesthesia scalpels and taken Pfannenstiel skin incision is then made. A second scalpel is taken down to the fascia and the fascia scored with a knife. Of note a second industrial yard brake coupler was summoned for assistance but due to the emergent nature of this procedure and I proceeded with an commercial real estate assistant scrub nurse. Fascia is dissected off the rectus muscles. Rectus muscles are the peritoneum identified and entered sharply. Bladder blade is then placed. Bladder peritoneum was taken off the lower uterine segment. Scalpels and taken low transverse uterine incision is then made. Using a hemostat I enter the uterine cavity bluntly. The incision is then extended laterally. At this time the is found to be transverse with feet presenting. Feet are guided through the incision. Despite gentle efforts to deliver the feet through the incision it is evident that the incision was not big enough and therefore using a bandage scissors I make a T extension. At this time infant is delivered using the usual breech maneuvers. This is a viable male Apgars are 7 and 9 delivery time is 1906 hrs. Infant is handed off to the travel ot who is in attendance. After delivery of the the placenta is manually extracted intact. Uterus is then externalized and the edges are demarcated with Ospina clamps. It is noted this time the bladder was filled up and a Randall catheter is placed. With this done the uterine incision is then closed using 0 Vicryl running locked fashion. This is done in 2 and 3 layers and the T extension is close does well. With this completed and good hemostasis noted the bladder peritoneum was then identified and closed using 3-0 Vicryl. Excess fluid is removed from the abdomen and pelvis. Per the patient's wishes I then turned my attention to the left fallopian tube and using Bovie cautery make a small window through the mesial salpinx. Using a 2-0 silk I doubly ligate the tube and a 1-2 cm segment of tube was excised. Cauterization is done of the tubal ends. Excellent hemostasis is noted. Then turned my attention to the right fallopian tube and using a similar technique we have similar results. With this done the uterus is placed back into the abdomen. Attention is paid to the incision and the tubal ends and the overall hemostatic. The parietal peritoneum was then identified and closed using 0 Vicryl running fashion. Rectus muscles reapproximated in 0 Vicryl interrupted fashion. Fascial incision is then closed using 0 PDS. Fascial incision is intact and hemostatic. Subcutaneous tissues and closed using a 3-0 Vicryl. Skin is and closed using tito. All counts are correct 3 however they were unable to do a count prior to the due to the emergent nature and therefore an x-ray was obtained which did not show any significant findings. Patient was awakened from anesthesia and taken to her birthing suite in satisfactory condition. No complications.
[2020-07-21] MEDS: ONDANSETRON 4 MG/2 ML VIAL IVP PRN (22:23)
[2020-07-22] MEDS: KETOROLAC 15 MG/ML 1 ML VIAL IVP PRN ×3 (01:10→15:01)
[2020-07-22] MEDS: LACTATED RINGERS 1,000 ML IV SCH ×4 (04:35→21:40)
[2020-07-22] MEDS: SENNOSIDES-DOCUSATE SODIUM 1 EACH TAB PO SCH ×2 (08:04→20:15)
--- NOTE | 2020-07-22 08:35 | P.PNOBGPC ---
Subjective - Subjective Principal diagnosis: Postop day 1 Interval history: Patient is doing very well this morning. She is ambulating and voiding. She is tolerating a liquid diet and will be advanced to regular diet today. All questions are answered for her at this time. Her vital signs are stable and she is afebrile. Current condition includes regular heart rate in her abdomen is soft with positive bowel sounds extremities are without pain. We'll plan removal of dressing later today. Objective - Vital Signs Latest vital signs: Vital Signs Temp Pulse Resp BP Pulse Ox 07/22/20 08:00 97.7 F 61 16 111/71 100 07/22/20 03:38 97.5 F L 59 L 16 116/68 07/22/20 00:00 97.8 F 66 16 105/63 07/21/20 22:03 97.3 F L 64 16 120/77 100 07/21/20 21:51 67 16 114/74 100 07/21/20 21:21 52 L 16 113/71 100 07/21/20 21:06 57 L 16 114/73 100 07/21/20 20:51 59 L 16 116/78 100 07/21/20 20:36 60 16 115/72 99 07/21/20 20:08 96.8 F L 77 16 117/70 07/21/20 16:10 97.6 F 74 18 121/75 99 Intake and Output 07/21/20 07/22/20 07/22/20 22:59 06:59 14:59 Intake Total 600 Output Total 1550 300 100 Balance -1550 -300 500 Intake: Oral 600 Output: Urine 450 300 100 Uretheral (Randall) 100 Estimated Blood Loss 1100 Other: Voiding Method Indwelling Catheter # Voids 1 Weight 71.214 kg - Exam Lungs: bilateral: normal Chest: Normal S1, Normal S2 Extremities: Present: normal Abdomen: Present: normal appearance, soft. Absent: distention, tenderness Incision: Present: normal, dry, intact Uterus: Present: normal, firm
[2020-07-22 08:53] LABS: Basophils % (A) 0 %; Eosinophils # (A) 0.1 k/uL (0-0.7); Eosinophils % (A) 1 %; HCT 28.6 % (34.0-46.0); HGB 9.2 gm/dL (11.4-16.0); Hypochromasia Slight; Lymphocytes # (A) 1.6 k/uL (1.0-4.8); Lymphocytes % (A) 15 %; MCH 27.4 pg (25.0-35.0); MCHC 32.3 g/dL (31.0-37.0); MCV 84.8 fL (80.0-100.0); Mean Platelet Volume 9.2; Monocytes # (A) 0.5 k/uL (0-1.0); Monocytes % (A) 5 %; Neutrophils # (A) 8.1 k/uL (1.3-7.7); Neutrophils % (A) 78 %; Platelet Count 193 k/uL (150-450); Poikilocytosis Slight; RBC 3.37 m/uL (3.80-5.40); RDW 15.1 % (11.5-15.5); WBC 10.3 k/uL (3.8-10.6)
[2020-07-22] MEDS: IRON AG/C/B12/CA/SUC.ACID/STOM 1 EACH TAB PO SCH (12:19)
[2020-07-22] MEDS: HYDROcodone/APAP 7.5-325MG 1 EACH TAB PO PRN ×2 (14:07→19:02)
[2020-07-22] MEDS: ONDANSETRON 4 MG/2 ML VIAL IVP PRN (16:00)
[2020-07-22 21:33] VITALS: RESP 16
[2020-07-23] MEDS: HYDROcodone/APAP 7.5-325MG 1 EACH TAB PO PRN ×3 (00:17→12:29)
[2020-07-23] MEDS: LACTATED RINGERS 1,000 ML IV SCH (00:18)
[2020-07-23] MEDS: SENNOSIDES-DOCUSATE SODIUM 1 EACH TAB PO SCH ×2 (09:18→09:21)
[2020-07-23] MEDS ORDERED: PRENATAL VIT-IRON-FOLIC ACID 1 EACH CAP PO SCH (10:00)
[2020-07-23 10:06] VITALS: BP 127/79; PULSE 86; TEMP 98.3
[2020-07-23] MEDS: IRON AG/C/B12/CA/SUC.ACID/STOM 1 EACH TAB PO SCH (10:06)
--- NOTE | 2020-07-23 10:13 | P.DS ---
Providers Date of admission: 07/21/20 15:54 Expected date of discharge: 07/23/20 Attending physician: Pascual Guerra Primary care physician: Stated None Hospital Course: Patient is doing very well post op day 2. She is ambulating, voiding and tolerating her diet. She plans to be discharged to home today. Vital signs are stable and afebrile. Heart regular, lungs clear, extremities without pain. Her abdomen is soft her incision is clean dry and intact and will plan to remove the tito today with follow-up next week. I did offer levered leave them into the weekend but she would prefer to have the mouth. Prescriptions for pain m edication for to the pharmacy. All the questions were answered her discharge instructions are reviewed. She is stable for discharge this time. Patient Condition at Discharge: Good Plan - Discharge Summary New Discharge Prescriptions: New Ibuprofen [Motrin] 600 mg PO Q6HR PRN #30 tab PRN Reason: Pain HYDROcodone/APAP 5-325MG [[facility] 5-325] 1 tab PO Q4HR PRN #30 tab PRN Reason: Pain Discharge Medication List HYDROcodone/APAP 5-325MG [[place] 5-325] 1 tab PO Q4HR PRN #30 tab 07/23/20 [Rx] Ibuprofen [Motrin] 600 mg PO Q6HR PRN #30 tab 07/23/20 [Rx] Follow up Appointment(s)/Referral(s): Pascual Guerra DO [Doctor of Osteopathic Medicine] - 1 Week Activity/Diet/Wound Care/Special Instructions: No heavy lifting, limit stairs and driving, and pelvic rest. If any high temperatures, heavy bleeding, or severe pain call my office Discharge Disposition: HOME SELF-CARE
== END 2020-07-23 13:45 | disposition home or self-care (01) | DRG 785 ==
LOC: FBPOP 15:02 → 4FBP 15:54
PROVIDERS: ADMIT Obstetrics & Gynecology; ATTEND Obstetrics & Gynecology
PROC: 10E0XZZ Delivery of Products of Conception, External Approach (ICD-10-PCS; 2020-07-21)
PROC: 00HU33Z Insertion of Infusion Device into Spinal Canal, Percutaneous Approach (ICD-10-PCS; 2020-07-21)
PROC: 3E0R3BZ Introduction of Anesthetic Agent into Spinal Canal, Percutaneous Approach (ICD-10-PCS; 2020-07-21)
PROC: 0UB70ZZ Excision of Bilateral Fallopian Tubes, Open Approach (ICD-10-PCS; principal; 2020-07-21 18:45)
PROC: 10D00Z1 Extraction of Products of Conception, Low, Open Approach (ICD-10-PCS; principal; 2020-07-21 18:45)
DX: O60.14X0 Preterm labor third trimester with preterm delivery third trimester, not applicable or unspecified (principal); Z37.2 Twins, both liveborn; O32.2XX2 Maternal care for transverse and oblique lie, fetus 2; O30.043 Twin pregnancy, dichorionic/diamniotic, third trimester; Z3A.35 35 weeks gestation of pregnancy; Z30.2 Encounter for sterilization; O99.334 Smoking (tobacco) complicating childbirth; F17.200 Nicotine dependence, unspecified, uncomplicated
CPT/HCPCS: 59025; 74018; 76815; 85025; 86850; 86900; 86901; 88302; 88307; 99213

== ENCOUNTER → 2020-09-28 | Outpatient (CLI) | payer OTHER | END | disposition home or self-care (01) | LOC: LABWHC1 12:24 | PROVIDERS: ATTEND Obstetrics & Gynecology | DX: N91.2 Amenorrhea, unspecified (principal) | CPT/HCPCS: 36415; 84702 ==

== ENCOUNTER 2021-08-14 07:31 | Emergency (ER) | payer OTHER ==
[2021-08-14 07:37] VITALS: RESP 18; TEMP 97
[2021-08-14] MEDS ORDERED: IBUPROFEN 600 MG TAB PO STA (08:16)
[2021-08-14] MEDS ORDERED: GABAPENTIN 300 MG CAP PO STA (08:16)
--- NOTE | 2021-08-14 10:01 | US ---
EXAMINATION TYPE: US venous doppler duplex UE LT DATE OF EXAM: 08/14/2021 COMPARISON: NONE CLINICAL HISTORY: pain. Pain. No hx of DVT. Patient does not take blood thinners. Patient had plasma donation on 08/09/21. SIDE PERFORMED: Left arm Left Arm: No evidence of DVT in veins imaged at this time. Satisfactory color flow and phasicity throughout the left upper extremity. IMPRESSION: No ultrasound evidence for acute deep or superficial venous thrombosis in the left upper extremity.
--- NOTE | 2021-08-14 10:39 | ED ---
General Adult HPI - General Chief complaint: Extremity Problem,Nontraumatic Stated complaint: Arm pain Time Seen by Provider: 08/14/21 07:43 Source: patient, RN notes reviewed, old records reviewed Mode of arrival: ambulatory Limitations: no limitations - History of Present Illness Initial comments: Patient is a 30-year-old female who presents with department after donating plasma 5 days ago and is not complaining of left arm pain. She states the pain starts at the site of the needle insertion and radiates down her left arm. Describes a sharp, quick sensation that travels down her arm. Has pain with movement of the elbow. Denies any numbness. His no other injuries. Denies any other injuries to the arm. Presents over concern for possible vascular injury or nerve injury to the left arm. - Related Data Previous Rx's Medication Instructions Recorded HYDROcodone/APAP 5-325MG [[facility] 1 tab PO Q4HR PRN #30 tab 07/23/20 5-325] Ibuprofen [Motrin] 600 mg PO Q6HR PRN #30 tab 07/23/20 Gabapentin 300 mg PO BID 3 Days #6 cap 08/14/21 Allergies Allergy/AdvReac Type Severity Reaction Status Date / Time No Known Allergies Allergy Verified 08/14/21 07:37 Review of Systems ROS Statement: Those systems with pertinent positive or pertinent negative responses have been documented in the HPI. Review of Systems: CONST: Denies fever EYES: Denies blurry vision ENT: Denies nasal congestion C/V: Denies Chest pain RESP: Denies shortness of breath GI: Denies abdominal pain : Denies dysuria SKIN: Denies rash. MSK: Endorses left arm pain. NEURO: Denies headache ROS Other: All systems not noted in ROS Statement are negative. Past Medical History Past Medical History: No Reported History History of Any Multi-Drug Resistant Organisms: None Reported Past Surgical History: Section Past Anesthesia/Blood Transfusion Reactions: No Reported Reaction Past Psychological History: Anxiety Smoking Status: Current every day smoker - Past Family History Father Family Medical History: No Reported History General Exam - General Exam Comments Initial Comments: General: Appears in no acute distress. HEAD: Normal with no signs of head trauma. EYES: EOMI ENT: Hearing grossly intact, normal oropharynx. RESPIRATORY: No respiratory distress. C/V: Irregular rate and rhythm. S1 and S2 auscultated. Peripheral pulses are 2+ intact throughout. ABD: Abdomen is nondistended. EXT: Normal range of motion, no obvious deformity. No tenderness to palpation over the site of the antecubital fossa of her left arm. There is discomfort with movement. No obvious injury. SKIN: No rashes or lesions observed on exposed skin. NEURO: Alert and oriented 4. No focal sensory strength deficits. Neurovascular intact throughout. Limitations: no limitations Course Vital Signs 08/14/21 08/14/21 07:32 10:43 Temperature 97.0 F L Pulse Rate 79 80 Respiratory 18 18 Rate Blood Pressure 124/61 120/78 O2 Sat by Pulse 100 98 Oximetry Medical Decision Making - Medical Decision Making Based on the patient's presentation and physical exam, I'm concerned for possible nerve damage the patient's left arm. I did discuss with her that it is possible that the needle may have struck her left nerve, likely median based on location. May be causing her pain and symptoms. However we will obtain an ultrasound to evaluate for any signs of clotting or vascular issue. She was in agreement this plan. She'll be given gabapentin for pain control. Ultrasound revealed no acute evidence for DVT, or other injury. On reevaluation come patient's pain is improved. I believe it is best for to be discharged home at this time. She can follow-up with her primary care doctor for further management. She was in agreement with this plan. I will provide the patient with a prescription for gabapentin. I instructed the patient to follow up with their PCP in the next 3 days. . I explained that the patient should return to the emergency department if they experience any worsening symptoms. Strict return precautions were discussed with the patient. The patient expressed understanding of these instructions. I answered all questions that the patient had. The patient was discharged home in good condition with their prescriptions and follow up information. Disposition Clinical Impression: Radiculopathy, Arm pain Disposition: HOME SELF-CARE Condition: Good Instructions (If sedation given, give patient instructions): Arm Pain (ED) Prescriptions: Gabapentin 300 mg PO BID 3 Days #6 cap Is patient prescribed a controlled substance at d/c from ED?: Yes Referrals: None,Stated [Primary Care Provider] - 1-2 days Luis Garcia [STAFF PHYSICIAN] - 1-2 days Time of Disposition: 10:20
[2021-08-14 10:44] VITALS: BP 120/78; PULSE 80
== END 2021-08-14 10:43 | disposition home or self-care (01) ==
LOC: EC 07:31
DX: M54.10 Radiculopathy, site unspecified (principal); M79.602 Pain in left arm
CPT/HCPCS: 99284